=== PATIENT | female | born 1995 | race Caucasian/White ===

== ENCOUNTER 2018-01-10 18:48 | Emergency (ER) | payer OTHER ==
[2018-01-10 19:26] VITALS: BP 141/50; PULSE 115; TEMP 97.6; BMI 24.1
--- NOTE | 2018-01-10 19:26 | PDOC ---
Rapid Medical Evaluation Time Seen by Provider: 01/10/18 19:20 Medical Evaluation: 01/10/18 19:21 pt c/o: sore throat and congestion, went to clinic and had a low inspiratory effort of the PFT, pt was given inhaler with good response, hx of asthma, c/o headache and congestion also, gave tylenol at clinic Pt on brief exam: lCTA, 97 % sat on room air, Tonsils 2+ and pink, uvula midline , speaking full sentences Pt ordered for : none pt to proceed to the ED: Discharge Disposition - Diagnosis Cough - Referrals - Patient Instructions - Post Discharge Activity
[2018-01-10] MEDS ORDERED: ONDANSETRON *ODT* 4 MG TABLET SL ONE (21:46)
[2018-01-10] MEDS ORDERED: DEXAMETHASONE LIQUID 0.5 MG/5 ML 240 ML BULK BOTTLE PO ONE (21:46)
[2018-01-10] MEDS ORDERED: DEXAMETHASONE SOD PHOSPHATE 10 MG/1 ML VIAL ONE (21:48)
[2018-01-10] MEDS ORDERED: ONDANSETRON *ODT* 4 MG TABLET ONE (21:48)
--- NOTE | 2018-01-10 21:52 | PDOC ---
History of Present Illness - General Chief Complaint: Sore Throat Stated Complaint: PCP SENT/PULMONARY OBSTRUCTION Time Seen by Provider: 01/10/18 19:20 History Source: Patient Exam Limitations: No Limitations - History of Present Illness Initial Comments: 01/10/18 21:47 Patient is a 22-year-old female, with history of asthma was seen at her [facility]Ds today diagnosed with influenza given Tamiflu however during examination the performed PFT which demonstratedsore low inspiratory effort. Patient is given Symbicort and felt better. Was then given and had a with good response. Patient reports she is unable to take in fluids feels nauseous received patient in no acute respiratory distress. Allergies: Lactose, or stridor extract Medications: [Tamiflu, Symbicort] Family History: Non-contributory Social History: Denies smoking, alcohol use, or IVDU Review of Systems GENERAL/CONSTITUTIONAL: [No fever or chills. No weakness. No weight change.] HEAD, EYES, EARS, NOSE AND THROAT: [No change in vision. No ear pain or discharge. Sore throat] CARDIOVASCULAR: [No chest pain or shortness of breath.] RESPIRATORY: [No cough, wheezing, or hemoptysis.] GASTROINTESTINAL: [No nausea, vomiting, diarrhea or constipation. No rectal bleeding.] GENITOURINARY: [No dysuria, frequency, or change in urination.] MUSCULOSKELETAL: [No joint or muscle swelling or pain. No neck or back pain.] SKIN AND BREASTS: [No rash or easy bruising.] NEUROLOGIC: [No headache, vertigo, loss of consciousness, or loss of sensation.] PSYCHIATRIC: [No depression or anxiety.] ENDOCRINE: [No increased thirst. No abnormal weight change.] HEMATOLOGIC/LYMPHATIC: [No anemia, easy bleeding, or history of blood clots.] ALLERGIC/IMMUNOLOGIC: [No hives or skin allergy. No latex allergy.] Physical Exam: GENERAL: [The patient is awake, alert, and fully oriented, in no acute distress. ] EYES: [Pupils equal, round and reactive to light, extraocular movements intact, sclera anicteric, conjunctiva clear.] ENT: [Ears normal, nares patent, oropharynx clear without exudates. +2 tonsils. Moist mucous membranes. No uvula deviation] NECK: [Normal range of motion, supple without lymphadenopathy, JVD, or masses.] LUNGS: [Breath sounds equal, clear to auscultation bilaterally. No wheezes, and no crackles.] HEART: [Regular rate and rhythm, normal S1 and S2 without murmur, rub or gallop. ] ABDOMEN: [Soft, nontender, normoactive bowel sounds. No guarding, no rebound. No masses. No bruising or abrasions] MUSCULOSKELETAL: [Normal range of motion, no edema. No clubbing or cyanosis. No cords, erythema, or tenderness. No CVA Tenderness with fist.] NEUROLOGICAL: [Cranial nerves II through XII grossly intact. Normal speech, normal gait.] SKIN: [Warm, Dry, normal turgor, no rashes or lesions noted.] 01/10/18 21:48 Past History - Past Medical History Allergies/Adverse Reactions: Allergies Allergy/AdvReac Type Severity Reaction Status Date / Time lactose Allergy Unknown Nausea Verified 01/10/18 19:27 oyster extract Allergy Unknown Hives Verified 01/10/18 19:27 Home Medications: Ambulatory Orders Azithromycin [Zithromax 250mg Tablets -] 250 mg PO UTDICT #6 tab 01/10/18 Ibuprofen [Motrin -] 600 mg PO QID #28 tablet 01/10/18 Ondansetron [Zofran Odt -] 4 mg SL TID #21 od.tablet 01/10/18 Asthma: Yes COPD: No - Immunization History Immunization Up to Date: Yes - Suicide/Smoking/Psychosocial Hx Smoking History: Never smoked Have you smoked in the past 12 months: No Information on smoking cessation initiated: No Hx Alcohol Use: No Drug/Substance Use Hx: No Substance Use Type: None *Physical Exam - Vital Signs Last Vital Signs Temp Pulse Resp BP Pulse Ox 97.6 F 115 H 19 141/50 97 01/10/18 19:23 01/10/18 19:23 01/10/18 19:23 01/10/18 19:23 01/10/18 19:23 Medical Decision Making - Medical Decision Making 01/10/18 21:50 A/P: Patient with fever, body aches, sore throat, cough and nausea. Patient reports that during the day she had difficulty breathing however feels better after Symbicort and albuterol inhaler. Patient reports she is able to drink but feels very nauseous, unable to drink a lot today. Will give Zofran 4 mg by mouth 1 was complaining of inability to take a deep breath Decadron 10 mg by mouth 1 given 01/10/18 22:15 lungs are clear and reassessment I have offered to place a saline lock and give patient one bolus of normal saline, she is refusing at this time.. Challenge initiated. 01/10/18 22:21 Patient is tolerating fluids, will DC on Azithromycin, continue tamiflu. Increase fluids and zoftan for nausea. Patient is nontoxic appearing, playful and smiling , no respiratory distress, s /p neb, the patient is sating 98%on room air. I discussed the physical exam findings, ancillary test results and final diagnoses with the patient. I answered all of the patient's questions. The patient was satisfied with the care received and felt comfortable with the discharge plan and treatment plan. The patient will call to arrange follow-up and will return to the Emergency Department with any new, persistent or worsening symptoms. *DC/Admit/Observation/Transfer Diagnosis at time of Disposition: Influenza Upper respiratory infection Qualifiers: URI type: unspecified URI Qualified Code(s): J06.9 - Acute upper respiratory infection, unspecified - Discharge Dispostion Disposition: HOME Condition at time of disposition: Stable Admit: No - Prescriptions Prescriptions: Azithromycin [Zithromax 250mg Tablets -] 250 mg PO UTDICT #6 tab Ibuprofen [Motrin -] 600 mg PO QID #28 tablet Ondansetron [Zofran Odt -] 4 mg SL TID #21 od.tablet - Referrals Referrals: José Loredo MD [Primary Care Provider] - - Patient Instructions Printed Discharge Instructions: Influenza Additional Instructions: You have been diagnosed with influenza. Please take the medication as directed. You are contagious. Please attempt to avoid contact of multiple individuals as this will cause the infection to spread. Return to emergency room if shortness of breath, wheezing, fever greater than 101, chest pain, or fainting occurs. - Post Discharge Activity Forms/Work/School Notes: Back to Work
== END 2018-01-10 22:28 | disposition home or self-care (01) ==
LOC: JERFT 18:48
DX: J11.1 Influenza due to unidentified influenza virus with other respiratory manifestations (principal); R51 Headache; J45.909 Unspecified asthma, uncomplicated
CPT/HCPCS: 99281-25

== ENCOUNTER 2022-03-21 10:07 | Emergency (ER) | payer OTHER ==
[2022-03-21 10:23] VITALS: BP 126/81; PULSE 94; TEMP 98.3; BMI 24.3
== END 2022-03-21 11:36 | disposition home or self-care (01) ==
LOC: JERFT 10:07
DX: M54.50 Low back pain, unspecified (principal)
CPT/HCPCS: 99283-25